=== PATIENT | male | born 1970 | race Caucasian/White ===

== ENCOUNTER → 2016-05-26 | Outpatient (CLI) | payer BC ==
[~2016-05-26] MED LIST: ERGO1CAP35 PO; SERT25TA PO
[2016-05-26 17:42] LABS: BASO % 0.2 %; BASO ABS # 0.01 K/uL (0-0.2); COMPLETE YES; EOS % 2.4 %; HEMATOCRIT 41.3 % (42-52); IG% 0.2 %; LYMPH % 27.7 %; LYMPH ABS # 1.82 K/uL (1.2-3.4); MEAN CELL VOLUME 88.1 fL (80-100); MEAN CORPUSCULAR HEMOGLOBIN 30.7 pg (25-34); MEAN CORPUSCULAR HGB CONC 34.9 g/dl (32-36); MEAN PLATELET VOLUME 12.2 fL (7.4-10.4); MONO % 7.6 %; NEUT % 61.9 %; PLATELET COUNT 167 K/uL (130-400); RED BLOOD COUNT 4.69 M/uL (4.7-6.1); WHITE BLOOD COUNT 6.58 K/uL (4.8-10.8)
[2016-05-26 17:53] LABS: BLOOD UREA NITROGEN 12 mg/dl (7-18); BUN/CREATININE RATIO 15.5 (10-20); CALCIUM 8.6 mg/dl (8.5-10.1); CARBON DIOXIDE 31 mmol/L (21-32); CHLORIDE 106 mmol/L (98-107); CREATININE 0.79 mg/dl (0.60-1.40); GLUCOSE 86 mg/dl (70-99); POTASSIUM 4.1 mmol/L (3.5-5.1); SODIUM 142 mmol/L (136-145)
[2016-05-26 18:58] LABS: LYME DISEASE AB IGM NEG (NEG)
[2016-05-26 19:01] LABS: LYME DISEASE AB IGG NEG (NEG)
== END | disposition home or self-care (01) ==
LOC: C.LABPVFM 14:00
PROVIDERS: ATTEND Nurse Practitioner
DX: R53.83 Other fatigue (principal); E55.9 Vitamin D deficiency, unspecified

== ENCOUNTER 2023-08-15 20:16 | Observation (INO) ==
[2023-08-15 21:57] LABS: Albumin Globulin Ratio 1.8 (0.9-2); Albumin Level 4.4 gm/dl (3.4-5.0); BUN Creatinine Ratio 16.1 (10-20); Bilirubin,Total 0.8 mg/dl (0.2-1.0); Calcium 8.9 mg/dl (8.6-10.3); Creatinine Clr Calc Pharmacy 162.5 ml/min; Est GFR (Non-African American) 116.4 ml/min; Globulin 2.5 gm/dl (2.5-4.0); Potassium 3.8 mmol/L (3.5-5.1); Total Protein 6.9 gm/dl (6.0-8.3)
[2023-08-15 22:01] LABS: Hematocrit (blood only) 39.2 % (42.0-52.0); Hemoglobin 13.5 g/dl (14.0-18.0); Immature Granulocytes # (auto) 0.01 K/uL (0.01-0.20); Immature Granulocytes % (auto) 0.2 %; Lymphocytes # (auto) 0.66 K/uL (1.20-3.40); Lymphocytes % (auto) 15.3 %; Mean Corpuscular Hgb Conc 34.4 g/dL (32.0-36.0); Mean Corpuscular Volume 89.9 fL (80.0-100.0); Mean Platelet Volume 11.2 fL (9.4-12.4); Monocytes # (auto) 0.38 K/uL (0.11-0.59); Monocytes % (auto) 8.8 %; Neutrophils # (auto) 3.25 K/uL (1.40-6.50); Neutrophils % (auto) 75.7 %; Platelet Count 114 K/uL (130-400); RDW Coefficient of Variation 12.4 % (11.5-14.5); RDW Standard Deviation 40.9 fL (36.4-46.3); Red Blood Count 4.36 M/uL (4.70-6.10)
--- NOTE | 2023-08-16 01:20 | Emergency Department Note ---
Impression & Plan Acute hyponatremia Admit to the [facility]ist ED Provider Note NAME: ISRAEL KONG AGE: 53 SEX: Male INFORMANT: Patient ED PROVIDER(S): Nora Crow DO CHIEF COMPLAINT: severe weakness and chills PLAN: Disposition: Admit to the [facility] MEDICAL DECISION MAKING: this is a 53-year-old male patient who presents to the emergency department with profound weakness and chills. Patient had dental implants done recently and developed an infection. He was seen 2 days ago and started on Augmentin here in the emergency department. He followed up earlier today with his oral surgeon and was switched from Augmentin to clindamycin because of medication side effects. Throughout the day today, the patient developed worsening weakness and chills. Laboratory studies reveal a low white blood cell count of 4.3. Hemoglobin/hematocrit were stable. Sodium was significantly low at 126. Bio fire testing was negative. The patient was bolused with IV normal saline solution. Triage Nursing notes: reviewed and agree with them. Vital Signs: reviewed and unremarkable Differential Diagnosis: sepsis, dental infection, viral illness, dehydration, electrolyte abnormality Diagnostics, independently interpreted by me: Cardiac Monitoring: normal sinus rhythm at 72. HPI: 53 year old Male arrives for evaluation of weakness, body and chills. patient is currently being treated for a dental infection. The patient underwent a dental implant procedure 2 weeks ago. he was seen here in the emergency department 2 days ago and started on Augmentin. He followed up with his oral surgeon earlier today and was switched to clindamycin. Patient states that he developed worsening profound weakness body aches and chills. PAST MEDICAL HISTORY: See Below, PAST SURGICAL HISTORY: See Below, SOCIAL HISTORY: See Below, HOME MEDICATIONS: see list ALLERGIES: None VITALS: See Below PHYSICAL EXAMINATION: HEENT: Head - normocephalic and atraumatic. Pupils are equal, round, and reactive to light. Extraocular eye muscles are intact, and sclera are anicteric. Nose - moist nasal mucosa without discharge. Mouth - moist buccal mucosa. Oropharynx is nonerythematous and there is no tonsillar exudate or edema noted. Dental implant site In the right lower mouth reveals some mild gingival erythema and edema Neck: Supple; no cervical lymphadenopathy Heart: Regular rate and rhythm. There is a normal S1 and S2 with no murmurs, clicks, or gallops appreciated. Lungs: Clear to auscultation bilaterally with no wheezes, rales, or rhonchi. Abdomen: Soft, completely nontender, nondistended, with good bowel sounds. There are no palpable pulsatile masses or hepatosplenomegaly. There is no guarding, rigidity, or rebound noted. Extremities: No evidence of cyanosis, clubbing, or edema. There are easily palpable peripheral pulses. Skin: warm and dry with good turgor and no rashes. Emergency department treatment: quality assurance monitor body, IV normal saline bolus Emergency department course: Nursing staff ordered protocols on this patient. The patient was evaluated in room C2. A complete history and physical was performed. An order was placed for continuous cardiac monitoring. The patient was in a normal sinus rhythm at a rate of 72. Upper respiratory bio fire test was obtained. Patient was noted to be significantly hyponatremic and was bolused with IV normal saline solution. Past Med/Surg History Problem List (Updated 08/16/23 @ 04:16 by Gabby Cazares DO) Weakness Acute hyponatremia (Acute) Dental infection (Acute) Periorbital cellulitis of left eye (Acute) Asthma (Chronic) Depression (Chronic) Low back pain (Acute) Medical History (Updated 08/16/23 @ 04:16 by Gabby Cazares DO) Stye Surgical History History of knee surgery LT knee Family History Denies family history of Ovarian cancer Prostate cancer Myocardial infarction Breast cancer Colorectal cancer Social History Smoking Status: Never smoker Hx Alcohol Use: Yes Hx Substance Use: No Preferred Language: Korean Communication Ability: Effective Hotel Manager Required: No Beliefs That Will Affect Care: None marital status: Single Current Living Situation: Family Current Living Situation Comment: Takes care of mother in the same home current occupational status: employed Other Information That Helps Us Care for You: No Feels Safe at Home: Yes Safety Concerns: Feels Safe At This Time Dental Care, Regularly: Yes Seatbelt Use: always Assistive Devices: Glasses Assistive Devices Comment: reading glasses, healing caps X2 on implants are attached, could loosen Allergies Allergies Allergy/AdvReac Type Severity Reaction Status Date / Time No Known Allergies Allergy Verified 08/16/23 01:59 Home Meds Home Medications Medication Instructions Recorded Confirmed albuterol sulfate 90 mcg/actuation 2 puff inhalation Q6 PRN Shortness 08/14/23 08/16/23 aerosol inhaler Of Breath tramadol 50 mg tablet 50 mg PO Q6 PRN Pain 08/14/23 08/16/23 clindamycin HCl 300 mg capsule 300 mg PO TID 08/16/23 08/16/23 Previous Rx's Medication Instructions Recorded oxycodone 5 mg tablet 5 mg PO Q6H PRN pain #10 tabs 08/14/23 Results & Data (ED) Vital Signs Vital Signs - 24 hr 08/15/23 20:38 08/15/23 23:50 08/16/23 03:00 Temperature 36.7 C Temperature Source Oral Oral Pulse Rate 81 Pulse Rate [Apical] 68 76 Pulse Rhythm [Apical] Regular Regular Pulse Strength [Apical] Normal Normal Respiratory Rate 18 16 16 Respiratory Effort / Characteristics Non-Labored Spontaneous Non-Labored Spontaneous Non-Labored Spontaneous Respiratory Depth Normal Normal Normal Respiratory Pattern Regular Blood Pressure 129/77 Blood Pressure [Right Arm] 130/90 126/72 Blood Pressure Mean 94 Blood Pressure Mean [Right Arm] 103 90 Blood Pressure Position Sitting Pulse Oximetry 98 99 99 Oxygen Delivery Method Room Air Room Air Room Air Sepsis Recent Fever Within 48 Hours Yes Sepsis New/Unexplained Change in Mental Status N/A Sepsis Action Taken by Nursing No Action Required Laboratory Data 08/15/23 21:13 08/16/23 07:36 Lab Results 08/15/23 08/16/23 08/16/23 Range/Units 21:13 01:24 01:26 WBC 4.30 L (4.8-10.8) K/ul RBC 4.36 L (4.70-6.10) M/uL Hgb 13.5 L (14.0-18.0) g/dl Hct 39.2 L (42.0-52.0) % MCV 89.9 (80.0-100.0) fL MCH 31.0 (25.0-34.0) pg MCHC 34.4 (32.0-36.0) g/dL RDW Std Deviation 40.9 (36.4-46.3) fL RDW Coeff of Cristina 12.4 (11.5-14.5) % Plt Count 114 L (130-400) K/uL MPV 11.2 (9.4-12.4) fL Immature Gran % (Auto) 0.2 % Neut % (Auto) 75.7 % Lymph % (Auto) 15.3 % [place] % (Auto) 8.8 % Eos % (Auto) 0.0 % Baso % (Auto) 0.0 % Neut # (Auto) 3.25 (1.40-6.50) K/uL Lymph # (Auto) 0.66 L (1.20-3.40) K/uL [place] # (Auto) 0.38 (0.11-0.59) K/uL Eos # (Auto) 0.00 (0.00-0.50) K/uL Baso # (Auto) 0.00 (0.00-0.20) K/uL Immature Gran # (Auto) 0.01 (0.01-0.20) K/uL Sodium 126 L (136-145) mmol/L Potassium 3.8 (3.5-5.1) mmol/L Chloride 93 L (98-107) mmol/L Carbon Dioxide 26 (21-32) mmol/L Anion Gap 7 (3-11) BUN 9 (6-23) mg/dl Creatinine 0.56 L (0.6-1.4) mg/dl Est Cr Clr Drug Dosing 162.5 ml/min Est GFR ( Amer) 135.0 ml/min Est GFR (Non-Af Amer) 116.4 ml/min BUN/Creatinine Ratio 16.1 (10-20) Glucose 103 H (70-99(Fasting)) mg/dl Lactate 0.6 (0.4-2.0) mmol/L Calcium 8.9 (8.6-10.3) mg/dl Magnesium 1.7 (1.7-2.4) mg/dl Total Bilirubin 0.8 (0.2-1.0) mg/dl AST 39 (13-39) U/L ALT 52 (7-52) U/L Alkaline Phosphatase 53 (34-104) U/L Total Protein 6.9 (6.0-8.3) gm/dl Albumin 4.4 (3.4-5.0) gm/dl Globulin 2.5 (2.5-4.0) gm/dl Albumin/Globulin Ratio 1.8 (0.9-2) Procalcitonin 0.15 (0-0.5) ng/ml Adenovirus (PCR) Not Detected (NotDetected) B. pertussis DNA (PCR) Not Detected (NotDetected) B.parapertussis DNA PCR Not Detected (NotDetected) C. pneumoniae DNA (PCR) Not Detected (NotDetected) Coronavirus OC43 (PCR) Not Detected (NotDetected) Coronavirus HKU1 (PCR) Not Detected (NotDetected) Coronavirus 229E (PCR) Not Detected (NotDetected) SARS-CoV-2 (PCR) Not Detected (NotDetected) Coronavirus NL63 (PCR) Not Detected (NotDetected) Human Metapneumovir PCR Not Detected (NotDetected) Influenza Type A (PCR) Not Detected (NotDetected) Influenza Type B (PCR) Not Detected (NotDetected) M. pneumoniae (PCR) Not Detected (NotDetected) Parainfluenza 1 (PCR) Not Detected (NotDetected) Parainfluenza 2 (PCR) Not Detected (NotDetected) Parainfluenza 3 (PCR) Not Detected (NotDetected) Parainfluenza 4 (PCR) Not Detected (NotDetected) RSV (PCR) Not Detected (NotDetected) Entero/Rhino (PCR) Not Detected (NotDetected) Administered Medications Sodium Chloride (Nss) 1,000 mls @ 125 mls/hr IV .Q8H [facility] Stop: 08/16/23 21:04 Last Admin: 08/16/23 06:24 Dose: 125 mls/hr Documented By: OLIVER Ampicillin Sodium/Sulbactam Sodium 3,000 mg/ Sodium Chloride 100 mls @ 200 mls/hr IV Q6H [facility] Stop: 08/26/23 05:59 Last Infusion: 08/16/23 07:02 Dose: Infused Documented By: Admin: 08/16/23 06:25 Dose: 200 mls/hr Documented By: OLIVER Discontinued Medications Sodium Chloride (Nss) 1,000 mls @ 999 mls/hr IV .Q1H1M ONE Stop: 08/16/23 02:13 Last Infusion: 08/16/23 02:48 Dose: Infused Documented By: [facility] Admin: 08/16/23 01:28 Dose: 999 mls/hr Documented By: [facility] Imaging Data Radiologist's Impression: Chest X-Ray 08/16/23 03:04 XR chest 1V portable CLINICAL HISTORY: hyponatremia TECHNIQUE: Single frontal radiograph of the chest was obtained. Comparison: Comparison is made to chest radiograph 03/30/2023 FINDINGS: No lines and tubes are seen. The cardiomediastinal silhouette is normal. The lungs are clear. No evidence of pleural effusion or pneumothorax. IMPRESSION: No acute chest disease. ACT 112: Negative or not required by law. Electronically signed by: Gasper Campos M.D. 08/16/2023 7:24 AM Discharge Plan Visit Data Chief Complaint: Infection Stated Complaint: FEVER, PAIN/BODYACHES/CHILL,RT BOTTOM TOOTH INFECT ED Provider: Nora Crow Discharge Problem: Acute hyponatremia Patient Disposition: Admitted As Inpatient Discharge Instructions Interventions: ED Discharge Assessment Last Done: 08/16/23 05:06
[2023-08-16] MEDS: SODIUM CHLORIDE 0.9% 1,000 ML IV ONE (01:28)
[2023-08-16 02:27] LABS: Adenovirus PCR Not Detected (NotDetected); Bordetella parapertussis PCR Not Detected (NotDetected); Bordetella pertussis PCR Not Detected (NotDetected); Chlamydia pneumoniae PCR Not Detected (NotDetected); Coronavirus 229E PCR Not Detected (NotDetected); Coronavirus CoV-2 (COVID19)PCR Not Detected (NotDetected); Coronavirus HKU1 PCR Not Detected (NotDetected); Coronavirus NL63 PCR Not Detected (NotDetected); Coronavirus OC43PCR Not Detected (NotDetected); Human Metapneumovirus PCR Not Detected (NotDetected); Influenza A PCR Not Detected (NotDetected); Influenza B PCR Not Detected (NotDetected); Mycoplasma pneumoniae PCR Not Detected (NotDetected); Parainfluenza Virus 1 PCR Not Detected (NotDetected); Parainfluenza Virus 2 PCR Not Detected (NotDetected); Parainfluenza Virus 3 PCR Not Detected (NotDetected); Parainfluenza Virus 4 PCR Not Detected (NotDetected); Respiratory Syncytial VirusPCR Not Detected (NotDetected); Rhinovirus/Enterovirus PCR Not Detected (NotDetected)
[2023-08-16 04:05] LABS: Magnesium 1.7 mg/dl (1.7-2.4)
--- NOTE | 2023-08-16 04:20 | History & Physical Report ---
Date of Service August 16, 2023 Assessment & Plan (1) Acute hyponatremia: Plan: [id number]. Last normal in March 2022 at 136. Likely multifactorial - ongoing nausea and poor appetite and decreased oral intake -Check urine and serum osmolality -Check urine Na -Repeat chemistry later today at 10:oo AM -NSS x 1L (2) Dental infection: Plan: Patient with recent dental implants with infection. He is on Clindamycin currently. Afebrile, HD stable. WBC low at 4.3. Ultimate plan is to have his crown placed after the infection clears -Unasyn 1.5gm IV q 6 hours -Tylenol and Tramadol PRN -Zofran PRN -Patient may use his oral rinse (3) Weakness: Plan: Generalized weakness in setting of active infection and acute hyponatremia. Rosmery jayne notes an overall decline in his health over the last several months -Treatment of acute medical issues as above History of Present Illness Chief Complaint: weakness Primary Care Provider: DO Suresh Rizo is a 53yo male presenting with weakness. Patient had dental implants placed in June in [place]. He had some ongoing discomfort. He was seen by his local dentist on 08/04 and had his healing caps removed. He was found to have fairly significant infection - thought that the implant caps were not initially placed on tightly enough thereby allowing food to get under the caps and cause an infection? His caps were replaced but three days ago the caps came off spontaneously and patient had a foul odor and taste in his mouth. He was seen in the ER on 08/14/23 with these complaints and was prescribed Augmentin and Oxycodone. He was seen in [place] today and his Augmentin was changed to Clindamycin. He presents today with profound weakness and fatigue, poor appetite and decreased oral intake as well as ongoing nausea. Patient's health has overall been in a state of decline since chet Covid- 19 in March In the ER he is afebrile, HD stable Er Course: NSS Allergies Allergy/AdvReac Type Severity Reaction Status Date / Time No Known Allergies Allergy Verified 08/16/23 01:59 Home Medications Medication Instructions Recorded Confirmed Type albuterol sulfate 90 mcg/actuation 2 puff inhalation Q6 PRN Shortness 08/14/23 08/16/23 History aerosol inhaler Of Breath oxycodone 5 mg tablet 5 mg PO Q6H PRN pain #10 tabs 08/14/23 08/16/23 Rx tramadol 50 mg tablet 50 mg PO Q6 PRN Pain 08/14/23 08/16/23 History clindamycin HCl 300 mg capsule 300 mg PO TID 08/16/23 08/16/23 History Past Med/Surg History Problem List (Updated 08/16/23 @ 04:16 by Gabby Cazares DO) Weakness Acute hyponatremia (Acute) Dental infection (Acute) Periorbital cellulitis of left eye (Acute) Asthma (Chronic) Depression (Chronic) Low back pain (Acute) Medical History (Updated 08/16/23 @ 04:16 by Gabby Cazares DO) Stye Surgical History History of knee surgery LT knee Family History Denies family history of Ovarian cancer Prostate cancer Myocardial infarction Breast cancer Colorectal cancer Social History Smoking Status: Never smoker Hx Alcohol Use: Yes Hx Substance Use: No Preferred Language: Liberian marital status: Single Current Living Situation: Parent current occupational status: employed Feels Safe at Home: Yes Dental Care, Regularly: Yes Seatbelt Use: always Review of Systems Review of Systems: All systems reviewed & are unremarkable except as noted in HPI & below Physical Exam Physical Exam: General: patient appears fatigued, non-toxic, oriented x 4 Skin: warm, dry, intact, no rashes or lesions HEENT: NC/AT, PERRL, EOMI, anicteric sclera, conjunctiva without injection, external ear normal to inspection and nontender, nares patent, moist mucus membranes, visible post x 2 in right mandibular jaw, no purulence or fluctuance with palpation, tenderness to gums, no oropharyngeal lesions, neck supple, trachea midline, no LAD, no thyromegaly, no JVD Heart: +S1/S2, regular, no m/r/g Lungs: equal air entry bilaterally, no rales/rhonchi/wheezes Abd: +BS, soft, NT/ND, no masses/organomegaly/ascites Ext: warm, 2+ pulses in UE/LE bilaterally, no clubbing/cyanosis or edema Neuro: nonfocal, patient AA&O x 4, speech intact, no facial droop, moving all extremities on command with equal strength 5/5 Results & Data Results & Data Vital Signs (Past 12 Hours) Vital Signs Temp Pulse Pulse Resp BP BP Pulse Ox 08/15/23 23:50 36.7 C 68 16 130/90 99 08/15/23 20:38 81 18 129/77 98 O2 Del Method 08/15/23 23:50 Room Air 08/15/23 20:38 Room Air Laboratory Results Laboratory Results WBC 4.30 K/ul (4.8-10.8) L 08/15/23 21:13 RBC 4.36 M/uL (4.70-6.10) L 08/15/23 21:13 Hgb 13.5 g/dl (14.0-18.0) L 08/15/23 21:13 Hct 39.2 % (42.0-52.0) L 08/15/23 21:13 MCV 89.9 fL (80.0-100.0) 08/15/23 21:13 MCH 31.0 pg (25.0-34.0) 08/15/23 21:13 MCHC 34.4 g/dL (32.0-36.0) 08/15/23 21:13 RDW Std Deviation 40.9 fL (36.4-46.3) 08/15/23 21:13 RDW Coeff of Cristina 12.4 % (11.5-14.5) 08/15/23 21:13 Plt Count 114 K/uL (130-400) L 08/15/23 21:13 MPV 11.2 fL (9.4-12.4) 08/15/23 21:13 Immature Gran % (Auto) 0.2 % 08/15/23 21:13 Neut % (Auto) 75.7 % 08/15/23 21:13 Lymph % (Auto) 15.3 % 08/15/23 21:13 [place] % (Auto) 8.8 % 08/15/23 21:13 Eos % (Auto) 0.0 % 08/15/23 21:13 Baso % (Auto) 0.0 % 08/15/23 21:13 Neut # (Auto) 3.25 K/uL (1.40-6.50) 08/15/23 21:13 Lymph # (Auto) 0.66 K/uL (1.20-3.40) L 08/15/23 21:13 [place] # (Auto) 0.38 K/uL (0.11-0.59) 08/15/23 21:13 Eos # (Auto) 0.00 K/uL (0.00-0.50) 08/15/23 21:13 Baso # (Auto) 0.00 K/uL (0.00-0.20) 08/15/23 21:13 Immature Gran # (Auto) 0.01 K/uL (0.01-0.20) 08/15/23 21:13 Sodium 126 mmol/L (136-145) L 08/15/23 21:13 Potassium 3.8 mmol/L (3.5-5.1) 08/15/23 21:13 Chloride 93 mmol/L (98-107) L 08/15/23 21:13 Carbon Dioxide 26 mmol/L (21-32) 08/15/23 21:13 Anion Gap 7 (3-11) 08/15/23 21:13 BUN 9 mg/dl (6-23) 08/15/23 21:13 Creatinine 0.56 mg/dl (0.6-1.4) L 08/15/23 21:13 Est Cr Clr Drug Dosing 162.5 ml/min 08/15/23 21:13 Est GFR ( Amer) 135.0 ml/min 08/15/23 21:13 Est GFR (Non-Af Amer) 116.4 ml/min 08/15/23 21:13 BUN/Creatinine Ratio 16.1 (10-20) 08/15/23 21:13 Glucose 103 mg/dl (70-99(Fasting)) H 08/15/23 21:13 Lactate 0.6 mmol/L (0.4-2.0) 08/16/23 01:24 Calcium 8.9 mg/dl (8.6-10.3) 08/15/23 21:13 Magnesium 1.7 mg/dl (1.7-2.4) 08/15/23 21:13 Total Bilirubin 0.8 mg/dl (0.2-1.0) 08/15/23 21:13 AST 39 U/L (13-39) 08/15/23 21:13 ALT 52 U/L (7-52) 08/15/23 21:13 Alkaline Phosphatase 53 U/L (34-104) 08/15/23 21:13 Total Protein 6.9 gm/dl (6.0-8.3) 08/15/23 21:13 Albumin 4.4 gm/dl (3.4-5.0) 08/15/23 21:13 Globulin 2.5 gm/dl (2.5-4.0) 08/15/23 21:13 Albumin/Globulin Ratio 1.8 (0.9-2) 08/15/23 21:13 Procalcitonin 0.15 ng/ml (0-0.5) 08/15/23 21:13 Adenovirus (PCR) Not Detected (NotDetected) 08/16/23 01:26 B. pertussis DNA (PCR) Not Detected (NotDetected) 08/16/23 01:26 B.parapertussis DNA PCR Not Detected (NotDetected) 08/16/23 01:26 C. pneumoniae DNA (PCR) Not Detected (NotDetected) 08/16/23 01:26 Coronavirus OC43 (PCR) Not Detected (NotDetected) 08/16/23 01:26 Coronavirus HKU1 (PCR) Not Detected (NotDetected) 08/16/23 01:26 Coronavirus 229E (PCR) Not Detected (NotDetected) 08/16/23 01:26 SARS-CoV-2 (PCR) Not Detected (NotDetected) 08/16/23 01:26 Coronavirus NL63 (PCR) Not Detected (NotDetected) 08/16/23 01:26 Human Metapneumovir PCR Not Detected (NotDetected) 08/16/23 01:26 Influenza Type A (PCR) Not Detected (NotDetected) 08/16/23 01:26 Influenza Type B (PCR) Not Detected (NotDetected) 08/16/23 01:26 M. pneumoniae (PCR) Not Detected (NotDetected) 08/16/23 01:26 Parainfluenza 1 (PCR) Not Detected (NotDetected) 08/16/23 01:26 Parainfluenza 2 (PCR) Not Detected (NotDetected) 08/16/23 01:26 Parainfluenza 3 (PCR) Not Detected (NotDetected) 08/16/23 01:26 Parainfluenza 4 (PCR) Not Detected (NotDetected) 08/16/23 01:26 RSV (PCR) Not Detected (NotDetected) 08/16/23 01:26 Entero/Rhino (PCR) Not Detected (NotDetected) 08/16/23 01:26 Diagnostic Findings CXR with no obvious source of infection PG Care Time/CCT Total # of Minutes Spent Total Time Spent with Patient: Total time spent is greater than 50% in coordination of care (as documented) at patient's floor/unit and/or counseling patient: Coding Level of Care Code 43591 INT INP/OBS CARE 2/55MIN Diagnoses Acute hyponatremia E87.1 Dental infection K04.7 Weakness R53.1
[2023-08-16] MEDS ORDERED: ALBUTEROL HFA 8 GM INHALER INH PRN (05:05)
[2023-08-16] MEDS ORDERED: traMADol HCL 50 MG TABLET PO PRN (05:05)
[2023-08-16] MEDS ORDERED: ACETAMINOPHEN 325 MG TAB PO PRN (05:05)
[2023-08-16] MEDS ORDERED: AMPICILLIN SOD/SULBACTAM SOD 3 GM VIAL IV SCH (05:05)
[2023-08-16] MEDS ORDERED: ONDANSETRON INJ 2 MG/ML 2 ML VIAL IV PRN (05:05)
[2023-08-16] MEDS: SODIUM CHLORIDE 0.9% 1,000 ML IV SCH (06:24)
[2023-08-16] MEDS: AMPICILLIN/SULBACTAM SOD 3,000 MG in SODIUM CHLOR 0.9% MINI-B 100 ML IV SCH (06:25)
--- NOTE | 2023-08-16 07:26 | XRay Report ---
XR chest 1V portable CLINICAL HISTORY: hyponatremia TECHNIQUE: Single frontal radiograph of the chest was obtained. Comparison: Comparison is made to chest radiograph 03/30/2023 FINDINGS: No lines and tubes are seen. The cardiomediastinal silhouette is normal. The lungs are clear. No evid ence of pleural effusion or pneumothorax. IMPRESSION: No acute chest disease. ACT 112: Negative or not required by law. Electronically signed by: Gasper Campos M.D. 08/16/2023 7:24 AM
--- NOTE | 2023-08-16 07:30 | Hospitalist Progress Note ---
Date of Service August 16, 2023 Assessment & Plan (1) Acute hyponatremia: Plan: [id number]. Likely multifactorial - ongoing nausea and poor appetite and decreased oral intake -Check urine and serum osmolality -Check urine Na -follow chemistry (2) Dental infection: Plan: Patient with recent dental implants with infection. He is on Clindamycin currently. Afebrile, HD stable. WBC low at 4.3. Ultimate plan is to have his crown placed after the infection clears, pt did have a respiratory biofire that was negative -Unasyn 1.5gm IV q 6 hours -Tylenol and Tramadol PRN -Zofran PRN -Patient may use his oral rinse (3) Weakness: Plan: Generalized weakness/metabolic encephalopahty in setting of active infection and acute hyponatremia. Patient notes an overall decline in his health over the last several months - Admission and Anticipated Discharge Date Admission Date: August 16, 2023 Results & Data Results & Data Vital Signs (Past 12 Hours) Vital Signs Temp Pulse Pulse Pulse Resp BP BP 08/16/23 07:26 98.1 F 70 18 117/74 08/16/23 05:10 98.8 F 80 16 115/82 08/16/23 03:00 76 16 126/72 08/15/23 23:50 98.1 F 68 16 130/90 08/15/23 20:38 81 18 129/77 Pulse Ox O2 Del Method 08/16/23 07:26 94 Room Air 08/16/23 05:10 97 Room Air 08/16/23 03:00 99 Room Air 08/15/23 23:50 99 Room Air 08/15/23 20:38 98 Room Air PG Care Time/CCT Total # of Minutes Spent Total Time Spent with Patient: Total time spent is greater than 50% in coordination of care (as documented) at patient's floor/unit and/or counseling patient: Coding Diagnoses Acute hyponatremia E87.1 Dental infection K04.7 Weakness R53.1
[2023-08-16 08:25] LABS: BUN Creatinine Ratio 13.2 (10-20); Creatinine Clr Calc Pharmacy 168.8 ml/min; Est GFR (African American) 138.1 ml/min; Est GFR (Non-African American) 119.1 ml/min; Potassium 4.1 mmol/L (3.5-5.1)
--- NOTE | 2023-08-16 15:53 | Discharge Summary ---
Discharge Summary Date of Service August 16, 2023 Principal Dx & Hospital Course #1 = Principal Diagnosis (1) Acute hyponatremia: resolved, did have modest urine sodium and low serum osm, likely from poor oral intake with recent dental work and dental infection educated on good solute intake, recommend outpt follow up and labs (2) Dental infection: Patient with recent dental implants with infection. discharged to resume Clindamycin pt states does have home pain meds (3) Weakness: Generalized weakness/metabolic encephalopathy in setting of active infection and acute hyponatremia, now resolved. Admission HPI Per Admitting Provider Suresh Barrett is a 53yo male presenting with weakness. Patient had dental implants placed in June in [place]. He had some ongoing discomfort. He was seen by his local dentist on 08/04 and had his healing caps removed. He was found to have fairly significant infection - thought that the implant caps were not initially placed on tightly enough thereby allowing food to get under the caps and cause an infection? His caps were replaced but three days ago the caps came off spontaneously and patient had a foul odor and taste in his mouth. He was seen in the ER on 08/14/23 with these complaints and was prescribed Augmentin and Oxycodone. He was seen in [place] today and his Augmentin was changed to Clindamycin. He presents today with profound weakness and fatigue, poor appetite and decreased oral intake as well as ongoing nausea. Patient's health has overall been in a state of decline since chet Covid- 19 in March In the ER he is afebrile, HD stable Er Course: NSS Discharge Exam pt looks to be in mild distress right lower jaw with some swelling and tenderness Updated Medication List Medication Instructions Recorded Confirmed Type albuterol sulfate 90 mcg/actuation 2 puff inhalation Q6 PRN Shortness 08/14/23 08/16/23 History aerosol inhaler Of Breath oxycodone 5 mg tablet 5 mg PO Q6H PRN pain #10 tabs 08/14/23 08/16/23 Rx tramadol 50 mg tablet 50 mg PO Q6 PRN Pain 08/14/23 08/16/23 History clindamycin HCl 300 mg capsule 300 mg PO TID 08/16/23 08/16/23 History Hospital Stay Data Consultations 08/16/23 03:36 ED Decision to Admit Stat Pending Results Patient Have Any Pending Studies at Discharge: No Discharge Instructions Given to Patient (Per Discharging Provider) please rest and recover please be sure you eat and drink well, drinking fluids other than water take your clindamycin and follow up with your dental provider Total Time Total Time Spent Total Time Spent (In Minutes): It required less than 30 minutes to prepare this patient for discharge. Coding Level of Care Code 59886 IN/OBS DISCH 30 MIN/LESS Diagnoses Acute hyponatremia E87.1 Dental infection K04.7 Weakness R53.1
== END 2023-08-16 11:35 | disposition home or self-care (01) | DRG 640 ==
LOC: ED 20:16 → 3W 08-16 04:08 → SUATTDRO 08-16 04:08 → INTOOBSV 08-16 04:08 → 3W 08-16 05:06